=== PATIENT | female | born 1940 | race Caucasian/White ===

== ENCOUNTER 2019-06-20 11:22 | Emergency (ER) | payer OTHER ==
--- NOTE | 2019-06-20 12:18 | RAD REPORT ---
EXAM DESCRIPTION: CT - Head Brain Wo Cont - 06/20/2019 12:08 pm CLINICAL HISTORY: Dizziness COMPARISON: None TECHNIQUE: Computed axial tomography of the head was obtained. IV contrast was not requested. All CT scans are performed using dose optimization technique as appropriate and may include automated exposure control or mA/KV adjustment according to patient size. FINDINGS: An intracranial bleed is not seen . The ventricles are normal in caliber. No extra-axial fluid collection is noted. Mild low-density areas within periventricular, deep and subcortical white matter likely represent is chemic changes secondary to small vessel disease. Fluid within the sinuses/ mastoids is not seen. IMPRESSION: No acute intracranial abnormality is seen. If patient's symptoms persist MRI of the bra in would be recommended.
[2019-06-20] MEDS ORDERED: NA CHLORIDE 0.9% 500 ML ONE (12:41)
[2019-06-20] MEDS ORDERED: MECLIZINE HCL 12.5 MG TAB ONE (12:41)
[2019-06-20 12:57] LABS: Absolute Lymphocytes (CBC) 1.9 K/uL (0.7-4.9); Basophils % 0.3 % (0-1.3); Hematocrit 39.4 % (36.0-45.0); Lymphocytes % 25.4 % (15.3-44.8); MPV 10.6 fL (7.6-11.3)
[2019-06-20 12:58] LABS: Urine Bacteria NONE SEEN /HPF (<20); Urine Culture Reflex Order NOT NEEDED; Urine RBC NONE SEEN /HPF (NONE SEEN)
[2019-06-20 12:59] LABS: Urine Blood NEGATIVE (NEG); Urine Glucose NEGATIVE (NEG); Urine Protein NEGATIVE (NEG); Urine Specific Gravity 1.015 (1.005-1.030); Urine pH 6.5 (5.0-7.0)
[2019-06-20 13:00] LABS: Protime INR 1.01
[2019-06-20 13:22] LABS: BUN Blood Urea Nitrogen 15 mg/dL (7-18); Bicarbonate 29 mmol/L (21-32); Glucose Level 92 mg/dL (74-106); Potassium 4.2 mmol/L (3.5-5.1); Sodium Level 136 mmol/L (136-145); Troponin (Emerg Dept Use Only) < 0.02 ng/mL (0.0-0.045)
[2019-06-20] MEDS ORDERED: PROMETHAZINE 25 MG/ML VIAL ONE (14:03)
--- NOTE | 2019-06-20 14:51 | RAD REPORT ---
EXAM DESCRIPTION: MRI - Brain Wo Cont - 06/20/2019 2:35 pm CLINICAL HISTORY: DIZZINESSdizziness, vomiting, stroke-like symptoms COMPARISON: CT head same date TECHNIQUE: Sagittal T1-weighted images were obtained along with axial PD, heavily T2-weighted and T2 -FLAIR images. Axial DWI and ADC mapping sequences were also obtained along with coronal heavily T2-w eighted images. FINDINGS: Metal dental work creates substantial artifact on diffusion-weighted imaging obscuring the frontal lobes and anterior temporal lobes. No intracranial hemorrhage identified. Acute infarction is not suspected. The frontal and anterior te mporal lobe assessment is limited. There is no edema or shift of midline structures. No extra-axial f luid collections. Dorsey-matter/white matter junction is preserved. Signal voids are seen as a normal f inding in the major intracranial vessels. No significant atrophy changes are present. Ventricles are normal in size. Scattered mild for age chronic ischemic changes seen in the cerebral white matter. Ba michael ganglia, thalamus and brainstem tissues are spared any measurable chronic ischemic change. Globes are mostly obscured. Mastoid air cells and paranasal sinuses are clear. IMPRESSION: No acute intracranial finding identified. However, frontal lobes and anterior temporal l obes are partially obscured by the dental artifact. Patient has mild for age chronic ischemic change. No measurable atrophy.
--- NOTE | 2019-06-20 15:08 | EKG ---
Test Date: 2019-06-20 Test Time: 12:01:07 Safety Investigator: MELLO MEASUREMENT RESULTS: Intervals: Rate: 58 KS: 140 QRSD: 98 QT: 458 QTc: 449 [place]: P: 72 KS: 140 QRS: 57 T: 71 INTERPRETIVE STATEMENTS: Sinus bradycardia Otherwise normal ECG No previous ECG available for comparison Electronically Signed On 06-20-19 15:07:33 FUNERAL ASSISTANT by Matthew Silva
[2019-06-20] MEDS ORDERED: DIAZEPAM 2 MG TABLET ONE (16:00)
--- NOTE | 2019-06-20 17:19 | ER ---
Nurse's Notes [facility] Name: Elsa Mohan Age: 79 yrs Sex: Female : 1940 Arrival Date: 06/20/2019 Time: : Bed 19 Private MD: Diagnosis: Dizziness and giddiness Presentation: 06/20 11:42 Presenting complaint: Patient states: DIZZINESS for a couple days, worse this morning, rv feels fine otherwise, denies n/v, head feels like it's spinning. Transition of care: patient was not received from another setting of care. Onset of symptoms was June 18, 2019. Risk Assessment: Do you want to hurt yourself or someone else? Patient reports no desire to harm self or others. Initial Sepsis Screen: Does the patient meet any 2 criteria? No. Patient's initial sepsis screen is negative. Does the patient have a suspected source of infection? No. Patient's initial sepsis screen is negative. Care prior to arrival: None. 11:42 Method Of Arrival: Wheelchair rv 11:42 Acuity: MAGDA 3 rv Triage Assessment: 11:44 General: Appears in no apparent distress. comfortable, Behavior is cooperative, bp appropriate for age, anxious. Pain: Denies pain. EENT: No deficits noted. Neuro: Reports dizziness. Cardiovascular: No deficits noted. Respiratory: No deficits noted. GI: No signs and/or symptoms were reported involving the gastrointestinal system. : No signs and/or symptoms were reported regarding the genitourinary system. Derm: No deficits noted. Musculoskeletal: No deficits noted. Historical: - Allergies: 11:44 No Known Allergies; rv - Home Meds: 11:44 losartan oral oral [Active]; Allopurinol Oral [Active]; levothyroxine oral [Active]; rv - PMHx: 11:44 Hypertension; Hypothyroidism; rv - PSHx: 11:44 Appendectomy; rv - Immunization history:: Adult Immunizations not up to date. - Social history:: Smoking status: Patient/guardian denies using tobacco. - Ebola Screening: : Patient negative for fever greater than or equal to 101.5 degrees Fahrenheit, and additional compatible Ebola Virus Disease symptoms Patient denies exposure to infectious person Patient denies travel to an Ebola-affected area in the 21 days before illness onset No symptoms or risks identified at this time. - Family history:: not pertinent. - Hospitalizations: : No recent hospitalization is reported. Screenin:59 Abuse screen: Denies threats or abuse. Denies injuries from another. Nutritional bp screening: No deficits noted. Tuberculosis screening: No symptoms or risk factors identified. Fall Risk None identified. Assessment: 11:44 General: SEE TRIAGE NOTE. bp 12:55 Reassessment: PT RETURNED FROM CT. ALL CURRENT ORDERS COMPLETED. bp 13:42 Reassessment: PT TO MRI. bp 14:32 Reassessment: administered 12.5 mg Phenergan IVP while pt in MRI, pt actively vomiting iw any time she lies flat, pt able to tolerate lying flat after approx 15 minutes. 14:44 Reassessment: PT RETURNED FROM MRI. bp 16:45 Reassessment: PT AMBULATED WITH STEADY GAIT. MD INFORMED. bp 17:55 Reassessment: PT D/C HOME VIA W/C, DX WITH DIZZINESS AND VERTIGO. bp Vital Signs: 11:45 BP 190 / 64; Pulse 57; Resp 16; Temp 98.2; Pulse Ox 98% on R/A; Weight 72.57 kg; Height rv 5 ft. 3 in. (160.02 cm); Pain 0/10; 12:56 BP 190 / 76; Pulse 59; Resp 16; Pulse Ox 100% ; bp 13:42 BP 208 / 74; Pulse 58; Resp 16; Pulse Ox 100% ; bp 14:48 BP 152 / 62; Pulse 60; Resp 16; Pulse Ox 100% ; bp 15:41 BP 164 / 68; Pulse 61; Resp 17; Temp 98.0(O); Pulse Ox 100% on R/A; mh5 16:40 BP 158 / 73; Pulse 65; Resp 17; Temp 97.7(O); Pulse Ox 97% on R/A; mh5 17:50 BP 157 / 65; Pulse 67; Resp 17; Temp 97.9; Pulse Ox 98% ; bp 11:45 Body Mass Index 28.34 (72.57 kg, 160.02 cm) rv ED Course: 11:26 Patient arrived in ED. mr 11:43 Triage completed. rv 11:45 Gordo Irwin MD is Attending Physician. rn 11:45 Arm band placed on. rv 11:58 Humphrey Maria, JENNIE is Primary Nurse. bp 11:59 Patient has correct armband on for positive identification. Bed in low position. Call bp light in reach. Side rails up X2. Adult w/ patient. 12:09 CT Head Brain wo Cont In Process Unspecified. EDMS 12:14 EKG done, by water restoration technician. reviewed by Gordo Irwin MD. at1 12:30 Inserted saline lock: 22 gauge in right forearm, using aseptic technique. Blood bp collected. 14:30 Brain Wo Cont MRI In Process Unspecified. EDMS 15:54 Warm blanket given. Pulse ox on. NIBP on. mh5 17:56 No provider procedures requiring assistance completed. IV discontinued, intact, bp bleeding controlled, No redness/swelling at site. Pressure dressing applied. Administered Medications: 12:30 Drug: NS 0.9% 500 ml Route: IV; Rate: bolus; Site: right forearm; bp 18:00 Follow up: IV Status: Completed infusion bp 12:30 Drug: Meclizine 50 mg Route: PO; bp 13:54 Follow up: Response: No adverse reaction bp 14:10 Drug: Phenergan 12.5 mg Route: IVP; Site: right wrist; iw 16:01 Follow up: Response: Nausea is decreased bp 16:01 Drug: Valium 2 mg Route: PO; bp 18:00 Follow up: Response: Marked relief of symptoms bp Outcome: 17:19 Discharge ordered by . rn 17:56 Discharged to home ambulatory, with family. bp 17:56 Condition: stable 17:56 Discharge instructions given to patient, Instructed on discharge instructions, follow up and referral plans. medication usage, Demonstrated understanding of instructions, follow-up care, medications, Prescriptions given X 2. 17:59 Patient left the ED. bp Signatures: Dispatcher [employer] HUDSON KeithChanda Irene, RN Gordo Bryant MD MD rn Gonzales, Amanda, coutierier EKG Tat1 Aline Mars mh5 Humphrey Maria, JENNIE RN bp Grabiel Roque RN RN rv
--- NOTE | 2019-06-20 17:20 | EDPHYS ---
Physician Documentation [facility] Name: Elsa Mohan Age: 79 yrs Sex: Female : 1940 Arrival Date: 06/20/2019 Time: : Bed 19 Private MD: ED Physician Gordo Irwin HPI: 06/20 11:54 This 79 yrs old Female presents to ER via Wheelchair with complaints of rn Dizziness. 11:54 The patient presents with sense of spinning. Onset: The symptoms/episode began/occurred rn 2 day(s) ago. Context: occurred at home, occurred while the patient was at rest. Modifying factors: The symptoms are alleviated by nothing, the symptoms are aggravated by standing up, changing position. Severity of symptoms: At their worst the symptoms were mild in the emergency department the symptoms are unchanged. The patient has not experienced similar symptoms in the past. reports 2 days of intermittent dizziness, worse when standing and trying to walk, feels off balance, no syncope, no injury or head trauma, denies headache. No fever/vomiting/diarrhea. NO chest pain. . Historical: - Allergies: 11:44 No Known Allergies; rv - Home Meds: 11:44 losartan oral oral [Active]; Allopurinol Oral [Active]; levothyroxine oral [Active]; rv - PMHx: 11:44 Hypertension; Hypothyroidism; rv - PSHx: 11:44 Appendectomy; rv - Immunization history:: Adult Immunizations not up to date. - Social history:: Smoking status: Patient/guardian denies using tobacco. - Ebola Screening: : Patient negative for fever greater than or equal to 101.5 degrees Fahrenheit, and additional compatible Ebola Virus Disease symptoms Patient denies exposure to infectious person Patient denies travel to an Ebola-affected area in the 21 days before illness onset No symptoms or risks identified at this time. - Family history:: not pertinent. - Hospitalizations: : No recent hospitalization is reported. ROS: 11:54 Constitutional: Negative for fever, chills, and weight loss, Eyes: Negative for injury, rn pain, redness, and discharge, Neck: Negative for injury, pain, and swelling, Cardiovascular: Negative for chest pain, palpitations, and edema, Respiratory: Negative for shortness of breath, cough, wheezing, and pleuritic chest pain, Abdomen/GI: Negative for abdominal pain, nausea, vomiting, diarrhea, and constipation, MS/Extremity: Negative for injury and deformity, Skin: Negative for injury, rash, and discoloration, Neuro: Negative for headache, weakness, numbness, tingling, and seizure. Exam: 11:54 Constitutional: This is a well developed, well nourished patient who is awake, alert, rn and in no acute distress. Head/Face: Normocephalic, atraumatic. ENT: MMM Cardiovascular: Regular rate and rhythm. No pulse deficits. Respiratory: No increased work of breathing, no retractions or nasal flaring. Abdomen/GI: Soft, non-tender MS/ Extremity: Pulses equal, no cyanosis. Neurovascular intact. Full, normal range of motion. Equal circumference. Neuro: Awake and alert, GCS 15, oriented to person, place, time, and situation. Cranial nerves II-XII grossly intact. Motor strength 5/5 in all extremities. Sensory grossly intact. Cerebellar exam normal. Vital Signs: 11:45 BP 190 / 64; Pulse 57; Resp 16; Temp 98.2; Pulse Ox 98% on R/A; Weight 72.57 kg; Height rv 5 ft. 3 in. (160.02 cm); Pain 0/10; 12:56 BP 190 / 76; Pulse 59; Resp 16; Pulse Ox 100% ; bp 13:42 BP 208 / 74; Pulse 58; Resp 16; Pulse Ox 100% ; bp 14:48 BP 152 / 62; Pulse 60; Resp 16; Pulse Ox 100% ; bp 15:41 BP 164 / 68; Pulse 61; Resp 17; Temp 98.0(O); Pulse Ox 100% on R/A; mh5 16:40 BP 158 / 73; Pulse 65; Resp 17; Temp 97.7(O); Pulse Ox 97% on R/A; mh5 17:50 BP 157 / 65; Pulse 67; Resp 17; Temp 97.9; Pulse Ox 98% ; bp 11:45 Body Mass Index 28.34 (72.57 kg, 160.02 cm) rv MDM: 11:46 Patient medically screened. rn 11:56 ED course: Reports recently started losartan for HTN.. rn 17:17 Differential diagnosis: cardiac arrhythmia, CVA, generalized weakness, hypovolemia, rn idiopathic dizziness, TIA, vertigo. Data reviewed: vital signs, nurses notes, lab test result(s), EKG, radiologic studies, CT scan, plain films, and as a result, I will discharge patient. Counseling: I had a detailed discussion with the patient and/or guardian regarding: the historical points, exam findings, and any diagnostic results supporting the discharge/admit diagnosis, lab results, radiology results, the need for outpatient follow up, to return to the emergency department if symptoms worsen or persist or if there are any questions or concerns that arise at home. Response to treatment: the patient's symptoms have markedly improved after treatment, and as a result, I will discharge patient. ED course: Pt improved, now ambulatory and feels better, neg w/u with normal MRI.. 06/20 11:54 Order name: CBC with Diff; Complete Time: 13:21 06/20 11:54 Order name: Basic Metabolic Panel; Complete Time: 13:24 06/20 11:54 Order name: Protime (+inr); Complete Time: 13:21 06/20 11:54 Order name: Ptt, Activated; Complete Time: 13:21 06/20 11:54 Order name: Urine Microscopic Only; Complete Time: 13:21 06/20 11:54 Order name: Troponin (emerg Dept Use Only); Complete Time: 13:24 rn 06/20 11:54 Order name: CT Head Brain wo Cont; Complete Time: 13:21 06/20 11:54 Order name: EKG; Complete Time: 11:55 rn 06/20 12:40 Order name: Urine Dipstick--Ancillary (enter results); Complete Time: 13:21 06/20 13:21 Order name: Brain Wo Cont MRI; Complete Time: 15:27 rn 06/20 11:54 Order name: IV Start; Complete Time: 12:58 rn 06/20 11:54 Order name: Urine Dipstick-Ancillary (obtain specimen); Complete Time: 12:58 rn 06/20 11:54 Order name: EKG - Nurse/Tech; Complete Time: 12:00 rn 06/20 15:39 Order name: Misc. Order: Ambulate to eval safe discharge home; Complete Time: 15:56 rn Administered Medications: 12:30 Drug: NS 0.9% 500 ml Route: IV; Rate: bolus; Site: right forearm; bp 18:00 Follow up: IV Status: Completed infusion bp 12:30 Drug: Meclizine 50 mg Route: PO; bp 13:54 Follow up: Response: No adverse reaction bp 14:10 Drug: Phenergan 12.5 mg Route: IVP; Site: right wrist; iw 16:01 Follow up: Response: Nausea is decreased bp 16:01 Drug: Valium 2 mg Route: PO; bp 18:00 Follow up: Response: Marked relief of symptoms bp Disposition: 06/20/19 17:19 Discharged to Home. Impression: Dizziness and giddiness. - Condition is Stable. - Discharge Instructions: Dizziness, Vertigo. - Prescriptions for Zofran ODT 4 mg Oral tablet,disintegrating - place 1 tablet by TRANSLINGUAL route every 8 hours As needed; 20 tablet. Meclizine 25 mg Oral Tablet - take 1 tablet by ORAL route every 8 hours As needed; 20 tablet. - Medication Reconciliation Form, Thank You Letter, Antibiotic Education, Prescription Opioid Use form. - Follow up: Private Physician; When: As needed; Reason: Recheck today's complaints, Re-evaluation by your physician. - Problem is new. - Symptoms have improved. Signatures: Dispatcher [employer] EDTracie Alcazar RN RN Gordo Irwin MD MD rn Peltier, Brian RN RN Grabiel Roque RN RN rv Corrections: (The following items were deleted from the chart) 17:59 17:19 06/20/2019 17:19 Discharged to Home. Impression: Dizziness and giddiness. bp Condition is Stable. Forms are Medication Reconciliation Form, Thank You Letter, Antibiotic Education, Prescription Opioid Use. Follow up: Private Physician; When: As needed; Reason: Recheck today's complaints, Re-evaluation by your physician. Problem is new. Symptoms have improved. rn
[2019-06-20 18:15] VITALS: BP 157/65; TEMP 97.9; O2SAT 98
== END 2019-06-20 17:59 | disposition home or self-care (01) ==
LOC: ER 11:22
DX: R42 Dizziness and giddiness (principal); I10 Essential (primary) hypertension; E03.9 Hypothyroidism, unspecified
CPT/HCPCS: 96361; 93005; 85025; 80048; 36415; 85610; 85730; 84484; 70450; 70551; 96374; 99284; J2550; J7040; 81003; 81015; J8597